=== PATIENT | female | born 1955 | race Caucasian/White ===

== ENCOUNTER 2016-08-09 11:09 | Emergency (ER) | payer BC ==
[2016-08-09 12:36] LABS: HEMOGLOBIN 13.9 gm/dl (12.3-15.3); RED BLOOD COUNT 4.02 M/UL (4.00-5.10)
[2016-08-09 12:57] LABS: BUN/CREATININE RATIO 23 (0-10)
== END 2016-08-09 14:40 | disposition home or self-care (01) ==
LOC: ER1 11:09
PROVIDERS: Physician Assistant
DX: J20.9 Acute bronchitis, unspecified (principal); I10 Essential (primary) hypertension; I51.9 Heart disease, unspecified; E11.9 Type 2 diabetes mellitus without complications; F17.210 Nicotine dependence, cigarettes, uncomplicated; Z88.5 Allergy status to narcotic agent; Z79.899 Other long term (current) drug therapy
CPT/HCPCS: 71010; 80053; 82550; 82553; 83874; 84484; 85025; 85379; 93005; 94664; 96374; 99285; J2930

== ENCOUNTER → 2016-08-24 | Outpatient (CLI) | payer BC | LOC: KOH-I 14:20 | DX: J20.9 Acute bronchitis, unspecified (principal); J44.9 Chronic obstructive pulmonary disease, unspecified | CPT/HCPCS: 71020 ==

== ENCOUNTER → 2016-09-15 | Outpatient (CLI) | payer BC ==
[2016-09-15 14:19] LABS: RED BLOOD COUNT 4.02 M/UL (4.00-5.10); WHITE BLOOD COUNT 12.7 K/UL (4.5-11.0)
== END ==
LOC: LAB 13:40
PROVIDERS: Internal Medicine
DX: T50.995A Adverse effect of other drugs, medicaments and biological substances, initial encounter (principal); J30.1 Allergic rhinitis due to pollen; F17.219 Nicotine dependence, cigarettes, with unspecified nicotine-induced disorders; J30.89 Other allergic rhinitis; R94.2 Abnormal results of pulmonary function studies
CPT/HCPCS: 36415; 82785; 85025

== ENCOUNTER → 2020-05-14 | Outpatient (CLI) | payer OTHER ==
[~2020-05-14] MED LIST: ALBUTEROL SULFATE PO; ASPIRIN81 MG PO; BRILINTA 90 MG90 MG PO; CARDIZEM CD240 MG PO; CHOLESTEROL; EPIPEN 2-P0.3 MG/0.3 INJ; EVOLOCUMAB SQ; FEXOFENADINE HC60 MG PO; FLEXERIL 10 MG10 MG PO; FLOVENT HFA12 G1 INH; GABAPENTIN300 MG PO; GABAPENTIN600 MG PO; HYDROCODON-ACE1 EAC2 PO; ISOSORBIDE DINI30 MG PO; ISOSORBIDE MONO30 MG PO; JANUMET 50-1,01 EACH PO; JANUVIA100 MG PO; LOPRESSOR 25 MG25 MG PO; MEDROL4 MG PO; NITROGLYCERIN0.4 MG SL; NORCO 7.5-3251 EACH PO; ONDANSETRON HCL8 MG PO; PREVACID30 MG PO; SINGULAIR10 MG PO; ST. JOSEPH ASPI81 M1 PO; SYMBICORT 16010.2 GM INH; TRAZODONE HCL100 MG PO; VITAMIN D21250 MCG PO; XOLAIR150 MG/1 M SQ; ZANTAC150 MG PO; ZOFRAN 4 MG TAB4 MG PO; ZOLOFT50 MG PO
== END ==
LOC: HEART 5 08:38
DX: I20.9 Angina pectoris, unspecified (principal); I37.1 Nonrheumatic pulmonary valve insufficiency; R93.1 Abnormal findings on diagnostic imaging of heart and coronary circulation; I51.7 Cardiomegaly
CPT/HCPCS: 93306

== ENCOUNTER → 2020-05-15 | Outpatient (CLI) | payer OTHER | LOC: HEART 5 08:09 | DX: I20.9 Angina pectoris, unspecified (principal); R94.39 Abnormal result of other cardiovascular function study | CPT/HCPCS: 78452; A9502; J2785 ==

== ENCOUNTER → 2020-06-06 | Outpatient (CLI) | payer OTHER ==
[2020-06-06 13:03] LABS: HEMOGLOBIN 16.2 gm/dl (12.3-15.3); RED BLOOD COUNT 4.62 M/UL (4.00-5.10); WHITE BLOOD COUNT 12.9 K/UL (4.5-11.0)
[2020-06-06 13:24] LABS: BUN/CREATININE RATIO 11 (0-10)
== END ==
LOC: LAB 12:18
PROVIDERS: Internal Medicine Interventional Cardiology
DX: R94.39 Abnormal result of other cardiovascular function study (principal); I20.9 Angina pectoris, unspecified; R07.89 Other chest pain; R06.02 Shortness of breath
CPT/HCPCS: 36415; 80048; 85025; 85610; 85730; 93005

== ENCOUNTER 2020-06-10 10:51 | Outpatient (CLI) | payer OTHER ==
[~2020-06-10] VITALS: Ht 157.5 cm; Wt 98.0 kg
[~2020-06-10 10:51] MED LIST changes: -ALBUTEROL SULFATE PO; -ASPIRIN81 MG PO; -BRILINTA 90 MG90 MG PO; -EPIPEN 2-P0.3 MG/0.3 INJ; -EVOLOCUMAB SQ; -FEXOFENADINE HC60 MG PO; -FLOVENT HFA12 G1 INH; -GABAPENTIN600 MG PO; -HYDROCODON-ACE1 EAC2 PO; -ISOSORBIDE DINI30 MG PO; -ISOSORBIDE MONO30 MG PO; -JANUMET 50-1,01 EACH PO; -JANUVIA100 MG PO; -LOPRESSOR 25 MG25 MG PO; -NITROGLYCERIN0.4 MG SL; -ONDANSETRON HCL8 MG PO; -PREVACID30 MG PO; -SINGULAIR10 MG PO; -ST. JOSEPH ASPI81 M1 PO; -TRAZODONE HCL100 MG PO; -VITAMIN D21250 MCG PO; -XOLAIR150 MG/1 M SQ; -ZOFRAN 4 MG TAB4 MG PO; -ZOLOFT50 MG PO
[2020-06-10] MEDS ORDERED: ALBUTEROL SULFATE PO (13:03)
[2020-06-10] MEDS ORDERED: ST. JOSEPH ASPI81 M1 PO (13:03)
[2020-06-10] MEDS ORDERED: EPIPEN 2-P0.3 MG/0.3 INJ (13:03)
[2020-06-10] MEDS ORDERED: FLOVENT HFA12 G1 INH ×2 (13:04→19:45)
[2020-06-10] MEDS ORDERED: FEXOFENADINE HC60 MG PO ×2 (13:04→19:44)
[2020-06-10] MEDS ORDERED: JANUVIA100 MG PO (13:05)
[2020-06-10] MEDS ORDERED: ISOSORBIDE MONO30 MG PO (13:05)
[2020-06-10] MEDS ORDERED: PREVACID30 MG PO ×2 (13:06→19:47)
[2020-06-10] MEDS ORDERED: SINGULAIR10 MG PO ×2 (13:06→19:47)
[2020-06-10] MEDS ORDERED: NITROGLYCERIN0.4 MG SL ×2 (13:07→19:48)
[2020-06-10] MEDS ORDERED: ONDANSETRON HCL8 MG PO (13:08)
[2020-06-10] MEDS ORDERED: ZOLOFT50 MG PO ×2 (13:09→19:48)
[2020-06-10] MEDS ORDERED: TRAZODONE HCL100 MG PO ×2 (13:09→19:49)
[2020-06-10] MEDS ORDERED: EVOLOCUMAB SQ (13:09)
[2020-06-10] MEDS ORDERED: XOLAIR150 MG/1 M SQ ×2 (13:10→19:48)
[2020-06-10] MEDS ORDERED: VITAMIN D21250 MCG PO ×2 (13:10→19:44)
[2020-06-10] MEDS ORDERED: ASPIRIN81 MG PO (19:43)
[2020-06-10] MEDS ORDERED: GABAPENTIN600 MG PO (19:45)
[2020-06-10] MEDS ORDERED: HYDROCODON-ACE1 EAC2 PO (19:46)
[2020-06-10] MEDS ORDERED: ZOFRAN 4 MG TAB4 MG PO (19:48)
[2020-06-10] MEDS ORDERED: JANUMET 50-1,01 EACH PO (19:49)
[2020-06-10 22:11] LABS: HEMOGLOBIN 14.7 gm/dl (12.3-15.3); RED BLOOD COUNT 4.27 M/UL (4.00-5.10); WHITE BLOOD COUNT 13.8 K/UL (4.5-11.0)
[2020-06-10 22:26] LABS: BUN/CREATININE RATIO 15 (0-10)
[2020-06-11 03:07] LABS: HEMOGLOBIN 15.3 gm/dl (12.3-15.3); RED BLOOD COUNT 4.44 M/UL (4.00-5.10); WHITE BLOOD COUNT 13.6 K/UL (4.5-11.0)
[2020-06-11 03:25] LABS: BUN/CREATININE RATIO 15 (0-10)
[2020-06-11] MEDS ORDERED: LOPRESSOR 25 MG25 MG PO (10:08)
[2020-06-11] MEDS ORDERED: BRILINTA 90 MG90 MG PO (10:08)
[2020-06-11] MEDS ORDERED: ISOSORBIDE DINI30 MG PO (12:24)
[2020-06-11] MEDS ORDERED: CARDIZEM CD240 MG PO (13:06)
== END 2020-06-11 13:22 | disposition home or self-care (01) ==
LOC: CATH 10:51 → PROG CARE 17:27 → CATH 06-11 13:22
PROVIDERS: Internal Medicine Interventional Cardiology
DX: I25.119 Atherosclerotic heart disease of native coronary artery with unspecified angina pectoris (principal); I10 Essential (primary) hypertension; R94.39 Abnormal result of other cardiovascular function study; E78.5 Hyperlipidemia, unspecified; G47.30 Sleep apnea, unspecified; J45.909 Unspecified asthma, uncomplicated; K21.9 Gastro-esophageal reflux disease without esophagitis; K58.9 Irritable bowel syndrome, unspecified; M54.9 Dorsalgia, unspecified; G89.4 Chronic pain syndrome; F41.9 Anxiety disorder, unspecified; F17.210 Nicotine dependence, cigarettes, uncomplicated; H26.9 Unspecified cataract; E11.36 Type 2 diabetes mellitus with diabetic cataract; Z79.899 Other long term (current) drug therapy; Z79.82 Long term (current) use of aspirin; Z98.61 Coronary angioplasty status; Z20.822 Contact with and (suspected) exposure to COVID-19; Z80.9 Family history of malignant neoplasm, unspecified; Z83.3 Family history of diabetes mellitus; Z88.2 Allergy status to sulfonamides; Z88.8 Allergy status to other drugs, medicaments and biological substances
CPT/HCPCS: 36415; 80048; 82962; 85025; 85347; 93005; 99152; 99153; C1725; C1769; C1874; C1887; C9600; J0461; J1170; J1644; J2250; J3010; J7030; J7040; Q9967

== ENCOUNTER → 2020-07-15 | Outpatient (CLI) | payer OTHER ==
[~2020-07-15] MED LIST changes: +ALBUTEROL SULFATE PO; +ASPIRIN81 MG PO; +BRILINTA 90 MG90 MG PO; +EPIPEN 2-P0.3 MG/0.3 INJ; +EVOLOCUMAB SQ; +FEXOFENADINE HC60 MG PO; +FLOVENT HFA12 G1 INH; +GABAPENTIN600 MG PO; +HYDROCODON-ACE1 EAC2 PO; +ISOSORBIDE DINI30 MG PO; +ISOSORBIDE MONO30 MG PO; +JANUMET 50-1,01 EACH PO; +JANUVIA100 MG PO; +LOPRESSOR 25 MG25 MG PO; +NITROGLYCERIN0.4 MG SL; +ONDANSETRON HCL8 MG PO; +PREVACID30 MG PO; +SINGULAIR10 MG PO; +ST. JOSEPH ASPI81 M1 PO; +TRAZODONE HCL100 MG PO; +VITAMIN D21250 MCG PO; +XOLAIR150 MG/1 M SQ; +ZOFRAN 4 MG TAB4 MG PO; +ZOLOFT50 MG PO
== END ==
LOC: RAD 11:09
DX: M54.2 Cervicalgia (principal); M47.812 Spondylosis without myelopathy or radiculopathy, cervical region; M43.12 Spondylolisthesis, cervical region; M48.02 Spinal stenosis, cervical region
CPT/HCPCS: 72040

== ENCOUNTER → 2021-03-26 | Outpatient (CLI) | payer OTHER | LOC: KOH-I 16:01 | DX: M25.512 Pain in left shoulder (principal) | CPT/HCPCS: 73030 ==

== ENCOUNTER 2021-03-31 13:46 | Observation (INO) | payer OTHER ==
[~2021-03-31] VITALS: Ht 157.5 cm; Wt 101.6 kg
[~2021-03-31 13:46] MED LIST changes: -EVOLOCUMAB SQ; -GABAPENTIN600 MG PO; -ISOSORBIDE DINI30 MG PO; -NORCO 7.5-3251 EACH PO; +REPATHA SY140 MG/1 M SQ
[2021-03-31 14:20] LABS: HEMOGLOBIN 16.4 gm/dl (12.3-15.3); RED BLOOD COUNT 4.91 M/UL (4.00-5.10); WHITE BLOOD COUNT 12.6 K/UL (4.5-11.0)
[2021-03-31 15:02] LABS: BUN/CREATININE RATIO 15 (0-10)
[2021-03-31] MEDS ORDERED: PLAVIX75 MG PO (16:49)
[2021-03-31] MEDS ORDERED: JANUVIA100 MG PO (16:49)
[2021-03-31] MEDS ORDERED: JARDIANCE25 MG PO (16:50)
[2021-03-31] MEDS ORDERED: GABAPENTIN600 MG PO (19:45)
[2021-03-31] MEDS ORDERED: NITROGLYCERIN0.4 MG SL (19:48)
--- NOTE | 2021-03-31 22:45 | NUR ---
PT REQUESTED A NICOTINE PATCH. APPLIED NICOTINE PATCH PER EMAR. APPROX. 25 MINUTES LATER PT RIPPED NICOTINE PATCH OFF AND STATED THAT SHE WAS GOING DOWNSTAIRS TO SMOKE. EDUCATED PT ON THE RISKS AND FACTORS OF GOING DOWNSTAIRS TO SMOKE. ALSO EDUCATED PT THAT WE WERE A NONSMOKING FACILITY. PT STILL LEFT THE FLOOR TO GO OUTSIDE TO SMOKE.
[2021-04-01 02:24] LABS: HEMOGLOBIN 15.1 gm/dl (12.3-15.3); WHITE BLOOD COUNT 10.8 K/UL (4.5-11.0)
[2021-04-01 02:28] LABS: RED BLOOD COUNT 4.35 M/UL (4.00-5.10)
[2021-04-01 02:52] LABS: BUN/CREATININE RATIO 20 (0-10)
[2021-04-01] MEDS ORDERED: ISOSORBIDE MONO60 MG PO (11:31)
[2021-04-01] MEDS ORDERED: NICOTINE PATCH1 EAC2 TOP (11:31)
== END 2021-04-01 15:32 | disposition home or self-care (01) ==
LOC: ER1 13:46 → CDU 16:16 → ER1 16:58 → M/S 17:07
PROVIDERS: Emergency Medicine; Physician Assistant; ADMIT Internal Medicine Infectious Disease
DX: R07.89 Other chest pain (principal); I25.10 Atherosclerotic heart disease of native coronary artery without angina pectoris; D75.89 Other specified diseases of blood and blood-forming organs; E11.9 Type 2 diabetes mellitus without complications; I10 Essential (primary) hypertension; E78.5 Hyperlipidemia, unspecified; G89.29 Other chronic pain; M54.9 Dorsalgia, unspecified; F17.210 Nicotine dependence, cigarettes, uncomplicated; I25.2 Old myocardial infarction; M19.012 Primary osteoarthritis, left shoulder; E66.01 Morbid (severe) obesity due to excess calories; Z79.84 Long term (current) use of oral hypoglycemic drugs; Z20.822 Contact with and (suspected) exposure to COVID-19; Z79.82 Long term (current) use of aspirin; Z79.02 Long term (current) use of antithrombotics/antiplatelets; Z79.899 Other long term (current) drug therapy; Z95.5 Presence of coronary angioplasty implant and graft; Z68.41 Body mass index [BMI] 40.0-44.9, adult
CPT/HCPCS: 36415; 71045; 80048; 80053; 82550; 82553; 82962; 83874; 84484; 85025; 93005; 94664; 99285; G0378; J1885; U0002

== ENCOUNTER → 2022-01-25 | Outpatient (CLI) | payer OTHER ==
[~2022-01-25] MED LIST changes: +GABAPENTIN600 MG PO; +ISOSORBIDE MONO60 MG PO; +JARDIANCE25 MG PO; +NICOTINE PATCH1 EAC2 TOP; +PLAVIX75 MG PO
== END ==
LOC: KOH-I 15:30
DX: R07.89 Other chest pain (principal)
CPT/HCPCS: 71046; 71100